=== PATIENT | female | born 1940 | race Caucasian/White ===

== ENCOUNTER 2016-11-30 14:39 | Inpatient (IN) | payer OTHER, MEDICARE ==
[~2016-11-30] VITALS: Ht 165.1 cm; Wt 84.6 kg
[~2016-11-30 14:39] MED LIST: ALENDRONATE SOD70 MG PO; ALLERGY MEDICIN25 M3 PO; AMOXICILLIN500 MG PO; ASPIR 8181 M1 PO; CALCITRIOL0.25 MCG PO; CELEXA20 MG PO; CLARITIN10 M3 PO; CLONIDINE HCL0.1 MG PO; COLACE100 MG PO; DAILY VITAMIN1 EAC4 PO; DAILY VITAMIN1 EAC8 PO; DOCUSATE SODIU100 MG PO; ECOTRIN325 MG PO; FOSAMAX70 MG PO; GABAPENTIN100 MG PO; GLUCOPHAGE500 MG PO; LIPITOR40 MG PO; LOPRESSOR25 MG PO; LORAZEPAM0.5 MG PO; LOSARTAN POTAS100 MG PO; LOVASTATIN40 MG PO; MEVACOR40 MG PO; PHENERGAN-CODE120 ML PO; PLAVIX75 MG PO; STOOL SOFTENER1 EAC2 PO; SYNTHROID137 MCG PO; SYNTHROID50 MCG PO; XANAX0.25 MG PO
[2016-11-30 15:40] LABS: EOSINOPHIL (%) 0 % (0-5); HEMATOCRIT 32.7 % (36.0-46.0); IMMATURE GRANULOCYTE (%) 0.2 % (0.0-0.7); IMMATURE GRANULOCYTE COUNT 0.4 K/uL; LYMPHOCYTE COUNT 2.1 K/uL (1.0-2.8); MCH 28.5 PG (29.0-34.0); MCHC 32.7 G/DL (30.0-36.0); MEAN PLAT.VOLUME 11.4 uM^3 (9.5-12.4); MONOCYTE (%) 6.1 % (3-12); MONOCYTE COUNT 1.1 K/uL (0-0.8); NEUTROPHIL (%) 81.8 % (45-76); NEUTROPHIL COUNT 14.4 K/uL (1.8-6.4); PLATELET COUNT 343 K/uL (156-360); RBC DIS.WIDTH-CV 15.6 % (11.8-14.6); RBC DIS.WIDTH-SD 47.8 % (39-53); RED BLOOD COUNT 3.76 M/uL (3.80-5.20); WHITE BLOOD COUNT 17.7 K/uL (4.1-10.2)
[2016-11-30 15:49] LABS: CHLORIDE 96 mEq/L (99-109); SODIUM 138 mEq/L (136-147)
[2016-11-30 15:51] LABS: GLUCOSE 149 mg/dL (70-99)
[2016-11-30 15:52] LABS: ANION GAP 16 MEQ/L (2-14)
[2016-11-30 15:53] LABS: TOTAL BILIRUBIN 0.9 mg/dL (0.0-1.0)
[2016-11-30 15:55] LABS: ALKALINE PHOSPHATASE 120 IU/L (3-129); GFR ESTIMATE (CALCULATED) > 59 mL/min/
[2016-11-30 15:56] LABS: UREA NITROGEN (BUN) 6 mg/dL (9-23)
[2016-11-30 15:58] LABS: LIPASE 75 U/L (1.0-51.0)
[2016-11-30 16:02] LABS: TROP-I INTERPRETATION NEGATIVE; TROPONIN-I 0.09 ng/mL (0.0-0.30)
[2016-11-30] MEDS ORDERED: PROTONIX40 MG PO (17:50)
[2016-11-30] MEDS ORDERED: CALCITRIOL0.25 MCG PO (17:51)
[2016-11-30] MEDS ORDERED: CELEXA20 MG PO (17:51)
[2016-11-30] MEDS ORDERED: LORAZEPAM0.5 MG PO (17:52)
[2016-11-30] MEDS ORDERED: CLARITIN,ALAVAR10 MG PO (17:52)
[2016-11-30] MEDS ORDERED: ZOFRAN4 MG PO (17:53)
[2016-11-30] MEDS ORDERED: AMLODIPINE BESYL5 MG PO (17:54)
[2016-11-30] MEDS ORDERED: CLONIDINE HCL0.1 MG PO (17:54)
[2016-11-30 17:55] LABS: ADD MIUA? YES; BILIRUBIN NEGATIVE; BLOOD SMALL; COLOR YELLOW ((YELLOW)); GLUCOSE (STRIP) 100; KETONES 15; LEUKOCYTES NEGATIVE; NITRITE NEGATIVE; PROTEIN (STRIP) 100; SPECIFIC GRAVITY 1.012 (1.000-1.030); UROBILINOGEN 0.2 MG/DL (0.2-1.0)
[2016-11-30] MEDS ORDERED: NEPHRO-VITE,1 TABLET PO (17:56)
[2016-11-30] MEDS ORDERED: K-DUR10 MEQ PO (17:57)
[2016-11-30] MEDS ORDERED: ATORVASTATIN CA80 MG PO (17:58)
[2016-11-30] MEDS ORDERED: ARANESP100 MCG/0. SC (17:58)
[2016-11-30] MEDS ORDERED: TYLENOL REGULA325 MG PO (17:59)
[2016-11-30] MEDS ORDERED: TYLENOL WITH C1 EACH PO (17:59)
[2016-11-30] MEDS ORDERED: PHENERGAN25 MG PR (18:00)
[2016-11-30] MEDS ORDERED: PROMETHAZINE HC25 M1 PO (18:00)
[2016-11-30] MEDS ORDERED: DULCOLAX10 MG PR (18:01)
[2016-11-30 18:08] LABS: BACTERIA NONE SEEN; CASTS NONE SEEN /LPF; CRYSTALS NONE SEEN; EPITHELIAL CELLS RARE; MUCUS NONE SEEN; PATHOLOGICAL CAST NONE SEEN; RED BLOOD CELLS 0-5 /HPF (0-5); SMALL ROUND CELL NONE SEEN; UCUL ADDED? NO; WHITE BLOOD CELLS 0-5 /HPF (0-5); YEAST-LIKE CELL NONE SEEN
[2016-11-30 21:46] VITALS: BP 170/72
[2016-11-30 22:00] VITALS: BP 170/72
[2016-11-30 23:55] VITALS: BP 144/65
[2016-12-01 00:32] LABS: METH RESISTANT S AUREUS PCR NEGATIVE (NEGATIVE)
[2016-12-01 00:38] LABS: PROBE CHECK PASS; SPECIMEN PROCESSING CONTROL PASS
[2016-12-01 04:00] VITALS: BP 135/60
[2016-12-01 05:46] LABS: ANION GAP 12 MEQ/L (2-14); CHLORIDE 106 MEQ/L (99-109); GFR ESTIMATE (CALCULATED) 46 mL/min/; POTASSIUM 2.8 MEQ/L (3.7-5.4); SAMPLE HEMOLYSIS CHECK 0; SAMPLE ICTERIC CHECK 0; SAMPLE LIPEMIA CHECK 0; SODIUM 142 MEQ/L (136-147); UREA NITROGEN (BUN) 10 mg/dL (9-23)
[2016-12-01 06:04] LABS: GLUCOSE 104 mg/dL (70-99)
[2016-12-01 06:11] LABS: HEMATOCRIT 26.2 % (36.0-46.0); MCH 28.6 PG (29.0-34.0); MCHC 32.1 G/DL (30.0-36.0); MCV 89.1 FL (83-99); RBC DIS.WIDTH-CV 16.1 % (11.8-14.6); WHITE BLOOD COUNT 16.6 K/uL (4.1-10.2)
[2016-12-01 06:12] LABS: RED BLOOD COUNT 2.94 M/uL (3.80-5.20)
[2016-12-01 07:00] LABS: PLATELET COUNT 238 K/uL (156-360)
[2016-12-01 07:45] VITALS: BP 150/68
[2016-12-01 11:57] VITALS: BP 130/58
[2016-12-01 16:40] VITALS: BP 137/60
[2016-12-01 19:41] VITALS: BP 122/58
[2016-12-02] VITALS (13 sets, daily range): BP systolic 107–134; BP diastolic 51–62
[2016-12-02 06:52] LABS: BASOPHIL COUNT 0.1 K/uL (0-0.1); EOSINOPHIL (%) 3.3 % (0-5); EOSINOPHIL COUNT 0.2 K/uL (0-0.3); HEMATOCRIT 23.9 % (36.0-46.0); IMMATURE GRANULOCYTE (%) 0.2 % (0.0-0.7); LYMPHOCYTE COUNT 1.9 K/uL (1.0-2.8); MCH 28.2 PG (29.0-34.0); MCHC 30.5 G/DL (30.0-36.0); MCV 92.3 FL (83-99); MONOCYTE (%) 6.3 % (3-12); MONOCYTE COUNT 0.4 K/uL (0-0.8); NEUTROPHIL (%) 57.1 % (45-76); NEUTROPHIL COUNT 3.4 K/uL (1.8-6.4); RBC DIS.WIDTH-CV 16.5 % (11.8-14.6); RBC DIS.WIDTH-SD 54.8 % (39-53); RED BLOOD COUNT 2.59 M/uL (3.80-5.20)
[2016-12-02 07:41] LABS: CHLORIDE 111 MEQ/L (99-109); GLUCOSE 76 mg/dL (70-99); IRON 80 MCG/DL (35-150); MAGNESIUM 1.3 mg/dl (1.3-2.7); SAMPLE HEMOLYSIS CHECK 0; SAMPLE ICTERIC CHECK 0; SAMPLE LIPEMIA CHECK 0; SODIUM 142 MEQ/L (136-147); UREA NITROGEN (BUN) 16 mg/dL (9-23)
[2016-12-02 07:42] LABS: ANION GAP 10 MEQ/L (2-14)
[2016-12-02 07:43] LABS: GFR ESTIMATE (CALCULATED) 31 mL/min/
[2016-12-02 08:13] LABS: MEAN PLAT.VOLUME 10.9 uM^3 (9.5-12.4); PLAT.SUFFICIENCY ADEQUATE; PLATELET COUNT 159 K/uL (156-360); USER ID SDF
[2016-12-03 03:26] VITALS: BP 103/59
[2016-12-03 06:09] LABS: BASOPHIL COUNT 0.1 K/uL (0-0.1); EOSINOPHIL (%) 6.6 % (0-5); EOSINOPHIL COUNT 0.5 K/uL (0-0.3); HEMATOCRIT 28.9 % (36.0-46.0); IMMATURE GRANULOCYTE (%) 0.1 % (0.0-0.7); LYMPHOCYTE COUNT 1.7 K/uL (1.0-2.8); MCHC 32.2 G/DL (30.0-36.0); MEAN PLAT.VOLUME 11.5 uM^3 (9.5-12.4); MONOCYTE (%) 6.9 % (3-12); MONOCYTE COUNT 0.6 K/uL (0-0.8); NEUTROPHIL (%) 65.4 % (45-76); NEUTROPHIL COUNT 5.3 K/uL (1.8-6.4); PLATELET COUNT 150 K/uL (156-360); RBC DIS.WIDTH-CV 16.7 % (11.8-14.6); RBC DIS.WIDTH-SD 54.8 % (39-53); RED BLOOD COUNT 3.21 M/uL (3.80-5.20); WHITE BLOOD COUNT 8.1 K/uL (4.1-10.2)
[2016-12-03 06:30] LABS: CHLORIDE 114 MEQ/L (99-109); GFR ESTIMATE (CALCULATED) 27 mL/min/; GLUCOSE 70 mg/dL (70-99); SODIUM 141 MEQ/L (136-147); UREA NITROGEN (BUN) 18 mg/dL (9-23)
[2016-12-03 06:31] LABS: POTASSIUM 4.1 MEQ/L (3.7-5.4)
[2016-12-03 06:41] LABS: ANION GAP 11 MEQ/L (2-14); SAMPLE HEMOLYSIS CHECK 0; SAMPLE ICTERIC CHECK 0; SAMPLE LIPEMIA CHECK 0
[2016-12-03 06:44] LABS: MAGNESIUM 1.1 mg/dl (1.3-2.7)
[2016-12-03 08:20] VITALS: BP 121/58
[2016-12-03 09:27] LABS: VANCOMYCIN, TROUGH 20.5 MCG/ML (10-20)
[2016-12-03 12:28] VITALS: BP 121/58
[2016-12-03 16:26] VITALS: BP 123/58
[2016-12-03 20:00] VITALS: BP 120/56
[2016-12-04 00:39] VITALS: BP 125/60
[2016-12-04 05:07] VITALS: BP 128/77
[2016-12-04 06:53] LABS: HEMATOCRIT 30.1 % (36.0-46.0); MCH 28.7 PG (29.0-34.0); MCHC 31.9 G/DL (30.0-36.0); MCV 90.1 FL (83-99); MEAN PLAT.VOLUME 11.5 uM^3 (9.5-12.4); PLATELET COUNT 138 K/uL (156-360); RBC DIS.WIDTH-CV 16.7 % (11.8-14.6); RBC DIS.WIDTH-SD 54.8 % (39-53); RED BLOOD COUNT 3.34 M/uL (3.80-5.20); WHITE BLOOD COUNT 6.9 K/uL (4.1-10.2)
[2016-12-04 07:14] LABS: BASOPHIL COUNT 0.1 K/uL (0-0.1); EOSINOPHIL (%) 7.6 % (0-5); EOSINOPHIL COUNT 0.5 K/uL (0-0.3); IMMATURE GRANULOCYTE (%) 0.1 % (0.0-0.7); LYMPHOCYTE COUNT 1.8 K/uL (1.0-2.8); MONOCYTE (%) 6.7 % (3-12); MONOCYTE COUNT 0.5 K/uL (0-0.8); NEUTROPHIL (%) 59.4 % (45-76); NEUTROPHIL COUNT 4.1 K/uL (1.8-6.4)
[2016-12-04 07:20] LABS: ANION GAP 9 MEQ/L (2-14); CHLORIDE 112 MEQ/L (99-109); GFR ESTIMATE (CALCULATED) 29 mL/min/; GLUCOSE 73 mg/dL (70-99); POTASSIUM 4.1 MEQ/L (3.7-5.4); SAMPLE HEMOLYSIS CHECK 0; SAMPLE ICTERIC CHECK 0; SAMPLE LIPEMIA CHECK 0; SODIUM 139 MEQ/L (136-147); UREA NITROGEN (BUN) 18 mg/dL (9-23)
[2016-12-04 07:22] LABS: VANCOMYCIN, TROUGH 17.5 MCG/ML (10-20)
[2016-12-04 07:54] VITALS: BP 115/55
[2016-12-04 09:01] LABS: INTACT PARATHYROID HORMONE 45 pg/mL (10-69)
[2016-12-04 15:45] VITALS: BP 110/56
[2016-12-04 20:48] VITALS: BP 128/58
[2016-12-04 23:50] VITALS: BP 138/63
[2016-12-05 06:26] LABS: ANION GAP 9 MEQ/L (2-14); CHLORIDE 111 MEQ/L (99-109); GFR ESTIMATE (CALCULATED) 29 mL/min/; GLUCOSE 72 mg/dL (70-99); SAMPLE HEMOLYSIS CHECK 0; SAMPLE ICTERIC CHECK 0; SAMPLE LIPEMIA CHECK 0; SODIUM 137 MEQ/L (136-147); UREA NITROGEN (BUN) 18 mg/dL (9-23)
[2016-12-05 06:49] LABS: VANCOMYCIN, TROUGH 14.5 MCG/ML (10-20)
[2016-12-05 15:18] LABS: UR CREATININE CONCENTRATION 54.9 MG/DL
[2016-12-05 16:00] VITALS: BP 150/67
[2016-12-06 00:52] VITALS: BP 140/65
[2016-12-06 06:22] LABS: ANION GAP 10 MEQ/L (2-14); CHLORIDE 111 MEQ/L (99-109); GFR ESTIMATE (CALCULATED) 29 mL/min/; GLUCOSE 67 mg/dL (70-99); POTASSIUM 3.8 MEQ/L (3.7-5.4); SAMPLE HEMOLYSIS CHECK 0; SAMPLE ICTERIC CHECK 0; SAMPLE LIPEMIA CHECK 0; SODIUM 139 MEQ/L (136-147); UREA NITROGEN (BUN) 15 mg/dL (9-23)
[2016-12-06 07:34] VITALS: BP 140/65
[2016-12-06 15:27] VITALS: BP 173/73
[2016-12-06 23:25] VITALS: BP 162/67
[2016-12-07 05:26] LABS: MCH 29.1 PG (29.0-34.0); MCHC 32.5 G/DL (30.0-36.0); MCV 89.5 FL (83-99); MEAN PLAT.VOLUME 12.2 uM^3 (9.5-12.4); PLATELET COUNT 159 K/uL (156-360); RBC DIS.WIDTH-CV 16.6 % (11.8-14.6); RBC DIS.WIDTH-SD 53.8 % (39-53); RED BLOOD COUNT 3.13 M/uL (3.80-5.20); WHITE BLOOD COUNT 6.6 K/uL (4.1-10.2)
[2016-12-07 05:29] LABS: EOSINOPHIL (%) 8.9 % (0-5); EOSINOPHIL COUNT 0.6 K/uL (0-0.3); IMMATURE GRANULOCYTE (%) 0.3 % (0.0-0.7); LYMPHOCYTE COUNT 1.8 K/uL (1.0-2.8); MONOCYTE COUNT 0.6 K/uL (0-0.8); NEUTROPHIL (%) 53.8 % (45-76); NEUTROPHIL COUNT 3.6 K/uL (1.8-6.4)
[2016-12-07 05:53] LABS: ANION GAP 9 MEQ/L (2-14); CHLORIDE 112 MEQ/L (99-109); GFR ESTIMATE (CALCULATED) 29 mL/min/; GLUCOSE 69 mg/dL (70-99); POTASSIUM 3.9 MEQ/L (3.7-5.4); SAMPLE HEMOLYSIS CHECK 0; SAMPLE ICTERIC CHECK 0; SAMPLE LIPEMIA CHECK 0; SODIUM 141 MEQ/L (136-147); UREA NITROGEN (BUN) 15 mg/dL (9-23)
[2016-12-07 05:55] LABS: VANCOMYCIN, TROUGH 28.3 MCG/ML (10-20)
[2016-12-07 07:22] VITALS: BP 152/68
[2016-12-07] MEDS ORDERED: OYSTER SHELL 51 EACH PO (12:55)
[2016-12-07] MEDS ORDERED: PROMETHAZINE HC25 M1 PO (12:57)
[2016-12-07] MEDS ORDERED: CELEXA20 MG PO (12:57)
[2016-12-07] MEDS ORDERED: SYNTHROID50 MCG PO (12:57)
[2016-12-07] MEDS ORDERED: ZOFRAN4 MG PO (12:57)
[2016-12-07] MEDS ORDERED: PROTONIX40 MG PO (12:57)
[2016-12-07] MEDS ORDERED: LOPRESSOR25 MG PO (12:57)
[2016-12-07] MEDS ORDERED: CLONIDINE HCL0.1 MG PO (12:57)
[2016-12-07] MEDS ORDERED: AMLODIPINE BESYL5 MG PO (12:57)
[2016-12-07] MEDS ORDERED: CALCITRIOL0.25 MCG PO (12:57)
[2016-12-07] MEDS ORDERED: LORAZEPAM0.5 MG PO (12:57)
[2016-12-07] MEDS ORDERED: ATORVASTATIN CA80 MG PO (12:57)
== END 2016-12-07 15:48 | disposition home or self-care (01) | DRG 871 ==
LOC: EME 14:39 → EDOF 16:55 → 4EAST 16:55 → 3EAST 16:55 → EDOF 16:55 → 4EAST 21:25 → 3EAST 12-02 22:52
PROVIDERS: Emergency Medicine; Family Medicine; Internal Medicine Nephrology
DX: A41.1 Sepsis due to other specified staphylococcus (principal); N18.6 End stage renal disease; I12.0 Hypertensive chronic kidney disease with stage 5 chronic kidney disease or end stage renal disease; E87.2 Acidosis; L97.529 Non-pressure chronic ulcer of other part of left foot with unspecified severity; L97.519 Non-pressure chronic ulcer of other part of right foot with unspecified severity; I70.1 Atherosclerosis of renal artery; D64.9 Anemia, unspecified; I25.10 Atherosclerotic heart disease of native coronary artery without angina pectoris; E11.9 Type 2 diabetes mellitus without complications; E87.6 Hypokalemia; E03.9 Hypothyroidism, unspecified; E78.5 Hyperlipidemia, unspecified; Z95.2 Presence of prosthetic heart valve; R53.1 Weakness; Z90.49 Acquired absence of other specified parts of digestive tract
CPT/HCPCS: 70450; 71010; 74176; 80048; 80053; 80069; 80202; 81003; 81050; 82306; 82575; 83540; 83605; 83690; 83735; 83970; 84466; 84484; 85025; 85027; 86850; 86900; 86901; 86920; 87040; 87077; 87081; 87186; 87641; 87801; 93005; 94799; 97530 GO; 97530 GP; 99281; 99285; J1644; J2405; J2543; J3370; J3480; J7030; J7050; P9016; P9040

== ENCOUNTER 2016-12-11 15:07 | Inpatient (IN) | payer OTHER, MEDICARE ==
[~2016-12-11] VITALS: Ht 165.1 cm; Wt 78.5 kg
[~2016-12-11 15:07] MED LIST changes: +AMLODIPINE BESYL5 MG PO; +ARANESP100 MCG/0. SC; +ATORVASTATIN CA80 MG PO; +CLARITIN,ALAVAR10 MG PO; +DULCOLAX10 MG PR; +K-DUR10 MEQ PO; +NEPHRO-VITE,1 TABLET PO; +OYSTER SHELL 51 EACH PO; +PHENERGAN25 MG PR; +PROMETHAZINE HC25 M1 PO; +PROTONIX40 MG PO; +TYLENOL REGULA325 MG PO; +TYLENOL WITH C1 EACH PO; +ZOFRAN4 MG PO
[2016-12-11 16:17] LABS: ADD MIUA? YES; BILIRUBIN NEGATIVE; BLOOD MODERATE; COLOR YELLOW ((YELLOW)); GLUCOSE (STRIP) NEGATIVE; KETONES NEGATIVE; LEUKOCYTES TRACE; NITRITE NEGATIVE; PROTEIN (STRIP) 30; SPECIFIC GRAVITY 1.012 (1.000-1.030); UROBILINOGEN 0.2 MG/DL (0.2-1.0)
[2016-12-11 16:26] LABS: BACTERIA NONE SEEN /HPF; CASTS NONE SEEN /LPF; CRYSTALS NONE SEEN; EPITHELIAL CELLS RARE /HPF; MUCUS NONE SEEN /LPF; PATHOLOGICAL CAST NONE SEEN; RED BLOOD CELLS 0-5 /HPF (0-5); SMALL ROUND CELL NONE SEEN; UCUL ADDED? NO; WHITE BLOOD CELLS 0-5 /HPF (0-5); YEAST-LIKE CELL NONE SEEN
[2016-12-11 16:26] LABS: HEMATOCRIT 30.4 % (36.0-46.0); MCH 28.7 PG (29.0-34.0); MCHC 32.6 G/DL (30.0-36.0); MCV 88.1 FL (83-99); MEAN PLAT.VOLUME 10.7 uM^3 (9.5-12.4); PLATELET COUNT 193 K/uL (156-360); RBC DIS.WIDTH-CV 16.1 % (11.8-14.6); RED BLOOD COUNT 3.45 M/uL (3.80-5.20); WHITE BLOOD COUNT 8.5 K/uL (4.1-10.2)
[2016-12-11 16:33] LABS: BASOPHIL COUNT 0.1 K/uL (0-0.1); EOSINOPHIL (%) 1.1 % (0-5); EOSINOPHIL COUNT 0.1 K/uL (0-0.3); IMMATURE GRANULOCYTE (%) 0.1 % (0.0-0.7); IMMATURE GRANULOCYTE COUNT 0.1 K/uL; LYMPHOCYTE COUNT 2.4 K/uL (1.0-2.8); MONOCYTE (%) 8.3 % (3-12); MONOCYTE COUNT 0.7 K/uL (0-0.8); NEUTROPHIL (%) 61.8 % (45-76); NEUTROPHIL COUNT 5.2 K/uL (1.8-6.4)
[2016-12-11 16:39] LABS: CHLORIDE 112 mEq/L (99-109); SODIUM 144 mEq/L (136-147)
[2016-12-11 16:41] LABS: GLUCOSE 90 mg/dL (70-99)
[2016-12-11 16:43] LABS: ANION GAP 10 MEQ/L (2-14)
[2016-12-11 16:44] LABS: POTASSIUM 2.9 mEq/L (3.7-5.4)
[2016-12-11 16:45] LABS: GFR ESTIMATE (CALCULATED) 33 mL/min/
[2016-12-11 16:46] LABS: UREA NITROGEN (BUN) 17 mg/dL (9-23)
[2016-12-11 22:00] VITALS: BP 203/83
[2016-12-12] VITALS (7 sets, daily range): BP systolic 136–194; BP diastolic 62–77
[2016-12-12 00:53] LABS: CHLORIDE 113 mEq/L (99-109); POTASSIUM 3.2 mEq/L (3.7-5.4); SODIUM 141 mEq/L (136-147)
[2016-12-12 00:54] LABS: GLUCOSE 74 mg/dL (70-99)
[2016-12-12 00:56] LABS: ANION GAP 8 MEQ/L (2-14)
[2016-12-12 00:58] LABS: GFR ESTIMATE (CALCULATED) 33 mL/min/
[2016-12-12 00:59] LABS: UREA NITROGEN (BUN) 15 mg/dL (9-23)
[2016-12-12 06:19] LABS: MCHC 32.6 G/DL (30.0-36.0); MCV 89.1 FL (83-99); MEAN PLAT.VOLUME 11.3 uM^3 (9.5-12.4); PLATELET COUNT 160 K/uL (156-360); RBC DIS.WIDTH-CV 16.8 % (11.8-14.6); RBC DIS.WIDTH-SD 54.6 % (39-53); RED BLOOD COUNT 3.03 M/uL (3.80-5.20); WHITE BLOOD COUNT 6.2 K/uL (4.1-10.2)
[2016-12-12 08:05] LABS: ALKALINE PHOSPHATASE 82 IU/L (3-129); ANION GAP 12 MEQ/L (2-14); CHLORIDE 111 MEQ/L (99-109); GFR ESTIMATE (CALCULATED) 33 mL/min/; GLUCOSE 67 mg/dL (70-99); POTASSIUM 2.9 MEQ/L (3.7-5.4); SAMPLE HEMOLYSIS CHECK 0; SAMPLE ICTERIC CHECK 0; SAMPLE LIPEMIA CHECK 0; SODIUM 144 MEQ/L (136-147); TOTAL BILIRUBIN 0.7 MG/DL (0.0-1.0); UREA NITROGEN (BUN) 15 mg/dL (9-23)
[2016-12-12 12:21] LABS: TROP-I INTERPRETATION NEGATIVE; TROPONIN-I 0.01 ng/mL (0.0-0.30)
[2016-12-12 13:28] LABS: MAGNESIUM 1.2 mg/dl (1.3-2.7)
[2016-12-12 18:42] LABS: TROP-I INTERPRETATION NEGATIVE; TROPONIN-I 0.02 ng/mL (0.0-0.30)
[2016-12-13 00:02] VITALS: BP 176/76
[2016-12-13 01:00] LABS: TROP-I INTERPRETATION NEGATIVE; TROPONIN-I < 0.01 ng/mL (0.0-0.30)
[2016-12-13 03:37] VITALS: BP 150/67
[2016-12-13 07:36] LABS: ANION GAP 8 MEQ/L (2-14); CHLORIDE 114 MEQ/L (99-109); GFR ESTIMATE (CALCULATED) 36 mL/min/; POTASSIUM 3.3 MEQ/L (3.7-5.4); SAMPLE HEMOLYSIS CHECK 0; SAMPLE ICTERIC CHECK 0; SAMPLE LIPEMIA CHECK 0; SODIUM 140 MEQ/L (136-147); UREA NITROGEN (BUN) 14 mg/dL (9-23)
[2016-12-13 07:37] LABS: GLUCOSE 87 mg/dL (70-99)
[2016-12-13 07:52] VITALS: BP 169/69
[2016-12-13 11:47] VITALS: BP 138/51
[2016-12-13] MEDS ORDERED: PANTOPRAZOLE SO40 MG PO (15:40)
[2016-12-13] MEDS ORDERED: AMLODIPINE BESY10 MG PO (15:40)
[2016-12-13 15:52] VITALS: BP 141/66
== END 2016-12-13 18:20 | disposition home health service (06) | DRG 641 ==
LOC: EME → EDBD 15:07 → 5WEST 20:09 → EDOF 20:09 → 5WEST 21:11 → 5SOUTH 12-12 11:43
PROVIDERS: Emergency Medicine; Internal Medicine; Internal Medicine Nephrology; Physician Assistant
DX: E87.6 Hypokalemia (principal); F33.9 Major depressive disorder, recurrent, unspecified; R64 Cachexia; J98.11 Atelectasis; J90 Pleural effusion, not elsewhere classified; N18.3 Chronic kidney disease, stage 3 (moderate); Z99.2 Dependence on renal dialysis; I12.9 Hypertensive chronic kidney disease with stage 1 through stage 4 chronic kidney disease, or unspecified chronic kidney disease; I25.10 Atherosclerotic heart disease of native coronary artery without angina pectoris; E78.5 Hyperlipidemia, unspecified; F41.9 Anxiety disorder, unspecified; K44.9 Diaphragmatic hernia without obstruction or gangrene; E78.00 Pure hypercholesterolemia, unspecified; E03.9 Hypothyroidism, unspecified; J44.9 Chronic obstructive pulmonary disease, unspecified; K21.9 Gastro-esophageal reflux disease without esophagitis; D64.9 Anemia, unspecified; I87.2 Venous insufficiency (chronic) (peripheral); E66.9 Obesity, unspecified; L89.150 Pressure ulcer of sacral region, unstageable; K29.70 Gastritis, unspecified, without bleeding; I70.0 Atherosclerosis of aorta; I70.1 Atherosclerosis of renal artery; R13.10 Dysphagia, unspecified; I73.9 Peripheral vascular disease, unspecified; Z79.02 Long term (current) use of antithrombotics/antiplatelets; Z95.5 Presence of coronary angioplasty implant and graft; Z68.29 Body mass index [BMI] 29.0-29.9, adult; Z80.1 Family history of malignant neoplasm of trachea, bronchus and lung; Z80.8 Family history of malignant neoplasm of other organs or systems
CPT/HCPCS: 70450; 71010; 74020; 80048; 80048 91; 80053; 81003; 83630; 83735; 84132 91; 84484; 85025; 85027; 87177; 87493; 88305; 88342 TC; 92610 GN; 93005; 94799; 99281; 99285; B4087; C9113; G0378; G8996 GN CH; G8997 GN CH; G8998 GN CH; J1644; J2405; J3480; J7030; J7040

== ENCOUNTER 2016-12-18 10:50 | Inpatient (IN) | payer OTHER, MEDICARE ==
[~2016-12-18] VITALS: Ht 165.1 cm; Wt 73.9 kg
[~2016-12-18 10:50] MED LIST changes: +AMLODIPINE BESY10 MG PO; +PANTOPRAZOLE SO40 MG PO
[2016-12-18 11:37] LABS: BASOPHIL COUNT 0.1 K/uL (0-0.1); EOSINOPHIL (%) 0.9 % (0-5); EOSINOPHIL COUNT 0.1 K/uL (0-0.3); IMMATURE GRANULOCYTE (%) 0.2 % (0.0-0.7); IMMATURE GRANULOCYTE COUNT 0.2 K/uL; LYMPHOCYTE COUNT 2.4 K/uL (1.0-2.8); MCH 28.9 PG (29.0-34.0); MCHC 33.6 G/DL (30.0-36.0); MCV 85.9 FL (83-99); MEAN PLAT.VOLUME 11.1 uM^3 (9.5-12.4); MONOCYTE (%) 9.5 % (3-12); MONOCYTE COUNT 1.1 K/uL (0-0.8); NEUTROPHIL (%) 68.5 % (45-76); PLATELET COUNT 265 K/uL (156-360); RBC DIS.WIDTH-CV 15.9 % (11.8-14.6); RBC DIS.WIDTH-SD 48.8 % (39-53); RED BLOOD COUNT 3.84 M/uL (3.80-5.20); WHITE BLOOD COUNT 11.6 K/uL (4.1-10.2)
[2016-12-18 11:42] LABS: CHLORIDE 102 mEq/L (99-109); POTASSIUM 2.6 mEq/L (3.7-5.4); SODIUM 139 mEq/L (136-147)
[2016-12-18 11:46] LABS: ANION GAP 15 MEQ/L (2-14); GLUCOSE 136 mg/dL (70-99); TOTAL BILIRUBIN 0.7 mg/dL (0.0-1.0)
[2016-12-18 11:48] LABS: ALKALINE PHOSPHATASE 110 IU/L (3-129); GFR ESTIMATE (CALCULATED) 33 mL/min/
[2016-12-18 11:49] LABS: UREA NITROGEN (BUN) 8 mg/dL (9-23)
[2016-12-18 11:51] LABS: LIPASE 30 U/L (1.0-51.0)
[2016-12-18 14:42] VITALS: BP 167/75
[2016-12-18 18:35] LABS: Estimated Average Glucose 114 mg/dL (70-123); HEMOGLOBIN A1c (GLYCOHEMOGLOB) 5.6 % HGB (Below 5.7)
[2016-12-18 18:49] VITALS: BP 190/84
[2016-12-18 21:00] VITALS: BP 195/84
[2016-12-19] VITALS (9 sets, daily range): BP systolic 131–188; BP diastolic 62–94
[2016-12-19 05:34] LABS: ADD MIUA? YES; BILIRUBIN NEGATIVE; BLOOD SMALL; COLOR YELLOW ((YELLOW)); GLUCOSE (STRIP) NEGATIVE; KETONES NEGATIVE; LEUKOCYTES SMALL; NITRITE POSITIVE; PROTEIN (STRIP) NEGATIVE; SPECIFIC GRAVITY 1.005 (1.000-1.030); UROBILINOGEN 0.2 MG/DL (0.2-1.0)
[2016-12-19 05:36] LABS: BACTERIA 3+ /HPF; EPITHELIAL CELLS RARE /HPF; MUCUS NONE SEEN /LPF; UCUL ADDED? YES
[2016-12-19 06:29] LABS: HEMATOCRIT 29.1 % (36.0-46.0); MCH 29.3 PG (29.0-34.0); MCHC 33.7 G/DL (30.0-36.0); MCV 86.9 FL (83-99); MEAN PLAT.VOLUME 11.2 uM^3 (9.5-12.4); PLATELET COUNT 244 K/uL (156-360); RBC DIS.WIDTH-CV 16.6 % (11.8-14.6); RBC DIS.WIDTH-SD 51.9 % (39-53); RED BLOOD COUNT 3.35 M/uL (3.80-5.20); WHITE BLOOD COUNT 9.4 K/uL (4.1-10.2)
[2016-12-19 06:43] LABS: INTER. NORMALIZED RATIO 1.3
[2016-12-19 06:57] LABS: ANION GAP 14 MEQ/L (2-14); CHLORIDE 100 MEQ/L (99-109); GFR ESTIMATE (CALCULATED) 39 mL/min/; HDL CHOLESTEROL 28 MG/DL (Desirable>=50); LDL CHOLESTEROL 43 mg/dL (Desirable<100); NON-HDL CHOLESTEROL 66 mg/dL (Desirable<160); POTASSIUM 2.8 MEQ/L (3.7-5.4); SAMPLE HEMOLYSIS CHECK 0; SAMPLE ICTERIC CHECK 0; SAMPLE LIPEMIA CHECK 0; SODIUM 137 MEQ/L (136-147); TOTAL CHOLESTEROL 94 mg/dL (Desirable<200); TRIGLYCERIDES 117 MG/DL (Normal: <150); UREA NITROGEN (BUN) 7 mg/dL (9-23)
[2016-12-19 06:59] LABS: GLUCOSE 98 mg/dL (70-99); MAGNESIUM 1.5 mg/dl (1.3-2.7)
[2016-12-19 22:59] LABS: INFLUENZA A VIRAL ANTIGEN NEGATIVE; INFLUENZA B VIRAL ANTIGEN NEGATIVE
[2016-12-20 04:14] VITALS: BP 145/64
[2016-12-20 07:15] VITALS: BP 179/75
[2016-12-20 07:19] LABS: BASOPHIL COUNT 0.1 K/uL (0-0.1); EOSINOPHIL (%) 9.9 % (0-5); EOSINOPHIL COUNT 0.6 K/uL (0-0.3); HEMATOCRIT 24.8 % (36.0-46.0); IMMATURE GRANULOCYTE (%) 0.2 % (0.0-0.7); LYMPHOCYTE COUNT 1.4 K/uL (1.0-2.8); MCH 28.9 PG (29.0-34.0); MCHC 32.7 G/DL (30.0-36.0); MCV 88.6 FL (83-99); MONOCYTE (%) 9.9 % (3-12); MONOCYTE COUNT 0.6 K/uL (0-0.8); NEUTROPHIL (%) 56.1 % (45-76); NEUTROPHIL COUNT 3.3 K/uL (1.8-6.4); PLATELET COUNT 201 K/uL (156-360); RBC DIS.WIDTH-CV 17.1 % (11.8-14.6); RBC DIS.WIDTH-SD 55.5 % (39-53)
[2016-12-20 07:20] LABS: WHITE BLOOD COUNT 5.9 K/uL (4.1-10.2)
[2016-12-20 07:36] LABS: ANION GAP 11 MEQ/L (2-14); CHLORIDE 104 MEQ/L (99-109); GFR ESTIMATE (CALCULATED) 42 mL/min/; GLUCOSE 74 mg/dL (70-99); POTASSIUM 3.1 MEQ/L (3.7-5.4); SAMPLE HEMOLYSIS CHECK 0; SAMPLE ICTERIC CHECK 0; SAMPLE LIPEMIA CHECK 0; SODIUM 137 MEQ/L (136-147); UREA NITROGEN (BUN) 10 mg/dL (9-23)
[2016-12-20 07:37] LABS: VANCOMYCIN, TROUGH 15.9 MCG/ML (10-20)
[2016-12-20 14:30] VITALS: BP 114/58
[2016-12-20 16:15] VITALS: BP 118/71
[2016-12-20 20:00] VITALS: BP 160/72
[2016-12-21 00:21] VITALS: BP 138/65
[2016-12-21 04:00] VITALS: BP 138/63
[2016-12-21 07:37] LABS: HEMATOCRIT 25.8 % (36.0-46.0); MCH 29.1 PG (29.0-34.0); MCHC 32.9 G/DL (30.0-36.0); MCV 88.4 FL (83-99); MEAN PLAT.VOLUME 10.7 uM^3 (9.5-12.4); PLATELET COUNT 205 K/uL (156-360); RBC DIS.WIDTH-CV 16.9 % (11.8-14.6); RBC DIS.WIDTH-SD 54.1 % (39-53); RED BLOOD COUNT 2.92 M/uL (3.80-5.20)
[2016-12-21 07:53] LABS: EOSINOPHIL (%) 9.2 % (0-5); EOSINOPHIL COUNT 0.6 K/uL (0-0.3); IMMATURE GRANULOCYTE (%) 0.2 % (0.0-0.7); LYMPHOCYTE COUNT 1.3 K/uL (1.0-2.8); MONOCYTE (%) 9.2 % (3-12); MONOCYTE COUNT 0.6 K/uL (0-0.8); NEUTROPHIL (%) 59.4 % (45-76); NEUTROPHIL COUNT 3.6 K/uL (1.8-6.4)
[2016-12-21 07:59] LABS: ANION GAP 8 MEQ/L (2-14); CHLORIDE 106 MEQ/L (99-109); GFR ESTIMATE (CALCULATED) 42 mL/min/; GLUCOSE 85 mg/dL (70-99); MAGNESIUM 1.7 mg/dl (1.3-2.7); POTASSIUM 3.6 MEQ/L (3.7-5.4); SAMPLE HEMOLYSIS CHECK 0; SAMPLE ICTERIC CHECK 0; SAMPLE LIPEMIA CHECK 0; SODIUM 136 MEQ/L (136-147); UREA NITROGEN (BUN) 11 mg/dL (9-23)
[2016-12-21 08:15] VITALS: BP 140/75
[2016-12-21 15:24] VITALS: BP 117/79
[2016-12-21 20:17] VITALS: BP 144/67
[2016-12-22] VITALS (7 sets, daily range): BP systolic 106–123; BP diastolic 50–60
[2016-12-22 09:44] LABS: HEMATOCRIT 27.2 % (36.0-46.0); MCV 90.7 FL (83-99); MEAN PLAT.VOLUME 11.3 uM^3 (9.5-12.4); PLATELET COUNT 259 K/uL (156-360); RBC DIS.WIDTH-SD 56.3 % (39-53)
[2016-12-22 10:14] LABS: ANION GAP 8 MEQ/L (2-14); CHLORIDE 103 MEQ/L (99-109); GFR ESTIMATE (CALCULATED) 39 mL/min/; POTASSIUM 3.9 MEQ/L (3.7-5.4); SAMPLE HEMOLYSIS CHECK 0; SAMPLE ICTERIC CHECK 0; SAMPLE LIPEMIA CHECK 0; SODIUM 132 MEQ/L (136-147); UREA NITROGEN (BUN) 12 mg/dL (9-23)
[2016-12-22 10:16] LABS: GLUCOSE 133 mg/dL (70-99)
[2016-12-22 10:24] LABS: WHITE BLOOD COUNT 9.7 K/uL (4.1-10.2)
[2016-12-22 10:36] LABS: BASOPHIL COUNT 0.1 K/uL (0-0.1); EOSINOPHIL (%) 4.9 % (0-5); EOSINOPHIL COUNT 0.5 K/uL (0-0.3); HEMATOLOGY COMMENT 1 SMEAR COMPATIBLE; IMMATURE GRANULOCYTE (%) 0.1 % (0.0-0.7); MONOCYTE COUNT 1.1 K/uL (0-0.8); NEUTROPHIL (%) 62.5 % (45-76); PLAT.SUFFICIENCY ADEQUATE
[2016-12-23 03:20] VITALS: BP 117/56
[2016-12-23 08:59] VITALS: BP 107/53
[2016-12-23 10:07] LABS: HEMATOCRIT 24.4 % (36.0-46.0); MCH 29.9 PG (29.0-34.0); MCHC 33.6 G/DL (30.0-36.0); MCV 89.1 FL (83-99); MEAN PLAT.VOLUME 10.6 uM^3 (9.5-12.4); PLATELET COUNT 257 K/uL (156-360); RBC DIS.WIDTH-CV 16.7 % (11.8-14.6); RBC DIS.WIDTH-SD 54.2 % (39-53); RED BLOOD COUNT 2.74 M/uL (3.80-5.20); WHITE BLOOD COUNT 8.6 K/uL (4.1-10.2)
[2016-12-23 10:25] LABS: ANION GAP 7 MEQ/L (2-14); CHLORIDE 103 MEQ/L (99-109); POTASSIUM 3.5 MEQ/L (3.7-5.4); SAMPLE HEMOLYSIS CHECK 0; SAMPLE ICTERIC CHECK 0; SAMPLE LIPEMIA CHECK 0; SODIUM 133 MEQ/L (136-147)
[2016-12-23 10:32] LABS: GFR ESTIMATE (CALCULATED) 39 mL/min/; UREA NITROGEN (BUN) 14 mg/dL (9-23)
[2016-12-23 11:41] LABS: GLUCOSE 207 mg/dL (70-99)
[2016-12-23 12:33] VITALS: BP 113/53
[2016-12-23 15:47] VITALS: BP 144/70
[2016-12-23 19:21] VITALS: BP 138/65
[2016-12-23 23:05] VITALS: BP 121/56
[2016-12-24 02:55] VITALS: BP 142/64
[2016-12-24 07:14] LABS: HEMATOCRIT 24.2 % (36.0-46.0); MCH 29.8 PG (29.0-34.0); MCHC 33.5 G/DL (30.0-36.0); MEAN PLAT.VOLUME 10.8 uM^3 (9.5-12.4); PLATELET COUNT 243 K/uL (156-360); RBC DIS.WIDTH-CV 16.6 % (11.8-14.6); RED BLOOD COUNT 2.72 M/uL (3.80-5.20); WHITE BLOOD COUNT 10.3 K/uL (4.1-10.2)
[2016-12-24 07:31] LABS: ANION GAP 11 MEQ/L (2-14); CHLORIDE 104 MEQ/L (99-109); GFR ESTIMATE (CALCULATED) 42 mL/min/; POTASSIUM 3.9 MEQ/L (3.7-5.4); SAMPLE HEMOLYSIS CHECK 0; SAMPLE ICTERIC CHECK 0; SAMPLE LIPEMIA CHECK 0; SODIUM 134 MEQ/L (136-147); UREA NITROGEN (BUN) 12 mg/dL (9-23)
[2016-12-24 07:32] LABS: GLUCOSE 116 mg/dL (70-99); MAGNESIUM 1.4 mg/dl (1.3-2.7)
[2016-12-24 07:47] VITALS: BP 152/67
[2016-12-24 11:25] VITALS: BP 130/62
[2016-12-24 15:45] VITALS: BP 148/66
[2016-12-24 19:50] VITALS: BP 179/76
[2016-12-24 23:40] VITALS: BP 153/68
[2016-12-25 04:57] VITALS: BP 142/60
[2016-12-25 07:55] LABS: ANION GAP 9 MEQ/L (2-14); CHLORIDE 103 MEQ/L (99-109); GFR ESTIMATE (CALCULATED) 51 mL/min/; GLUCOSE 114 mg/dL (70-99); POTASSIUM 3.4 MEQ/L (3.7-5.4); SAMPLE HEMOLYSIS CHECK 0; SAMPLE ICTERIC CHECK 0; SAMPLE LIPEMIA CHECK 0; SODIUM 136 MEQ/L (136-147); UREA NITROGEN (BUN) 9 mg/dL (9-23)
[2016-12-25 08:05] VITALS: BP 164/70
[2016-12-25 08:24] LABS: EOSINOPHIL (%) 6.6 % (0-5); EOSINOPHIL COUNT 0.7 K/uL (0-0.3); HEMATOCRIT 25.6 % (36.0-46.0); IMMATURE GRANULOCYTE (%) 0.2 % (0.0-0.7); IMMATURE GRANULOCYTE COUNT 0.2 K/uL; LYMPHOCYTE COUNT 1.8 K/uL (1.0-2.8); MCH 28.5 PG (29.0-34.0); MCHC 32.4 G/DL (30.0-36.0); MONOCYTE (%) 8.7 % (3-12); MONOCYTE COUNT 0.9 K/uL (0-0.8); NEUTROPHIL (%) 65.9 % (45-76); NEUTROPHIL COUNT 6.5 K/uL (1.8-6.4); PLATELET COUNT 303 K/uL (156-360); RBC DIS.WIDTH-CV 15.8 % (11.8-14.6); RBC DIS.WIDTH-SD 49.3 % (39-53); RED BLOOD COUNT 2.91 M/uL (3.80-5.20); WHITE BLOOD COUNT 9.9 K/uL (4.1-10.2)
[2016-12-25 12:20] VITALS: BP 146/68
[2016-12-25 15:55] VITALS: BP 141/65
[2016-12-25 19:00] VITALS: BP 134/62
[2016-12-25 22:57] VITALS: BP 144/66
[2016-12-26 03:50] VITALS: BP 129/61
[2016-12-26 08:23] VITALS: BP 148/66
[2016-12-26 10:35] LABS: POINT-OF-CARE METER ID UU13113694; POINT-OF-CARE USER ID AHSUCAJR
[2016-12-26 12:27] LABS: POINT-OF-CARE METER ID UU13113819
[2016-12-26 13:23] VITALS: BP 158/71
[2016-12-26 16:58] VITALS: BP 161/72
[2016-12-26 20:52] VITALS: BP 176/75
[2016-12-27 00:01] VITALS: BP 173/77
[2016-12-27 00:10] VITALS: BP 158/54
[2016-12-27 06:53] LABS: EOSINOPHIL (%) 4.1 % (0-5); EOSINOPHIL COUNT 0.3 K/uL (0-0.3); HEMATOCRIT 24.3 % (36.0-46.0); IMMATURE GRANULOCYTE (%) 0.1 % (0.0-0.7); LYMPHOCYTE COUNT 1.8 K/uL (1.0-2.8); MCH 28.6 PG (29.0-34.0); MCHC 32.9 G/DL (30.0-36.0); MCV 86.8 FL (83-99); MONOCYTE (%) 12.6 % (3-12); MONOCYTE COUNT 0.9 K/uL (0-0.8); NEUTROPHIL (%) 56.2 % (45-76); NEUTROPHIL COUNT 3.9 K/uL (1.8-6.4); PLATELET COUNT 293 K/uL (156-360); RBC DIS.WIDTH-CV 16.1 % (11.8-14.6); RBC DIS.WIDTH-SD 51.6 % (39-53)
[2016-12-27 06:59] LABS: WHITE BLOOD COUNT 6.9 K/uL (4.1-10.2)
[2016-12-27 07:08] LABS: ANION GAP 10 MEQ/L (2-14); CHLORIDE 100 MEQ/L (99-109); GFR ESTIMATE (CALCULATED) 46 mL/min/; GLUCOSE 90 mg/dL (70-99); POTASSIUM 3.2 MEQ/L (3.7-5.4); SAMPLE HEMOLYSIS CHECK 0; SAMPLE ICTERIC CHECK 0; SAMPLE LIPEMIA CHECK 0; SODIUM 135 MEQ/L (136-147); UREA NITROGEN (BUN) 10 mg/dL (9-23)
[2016-12-27 07:10] LABS: MAGNESIUM 1.4 mg/dl (1.3-2.7)
[2016-12-27 08:11] VITALS: BP 148/50
[2016-12-27 11:34] VITALS: BP 142/42
[2016-12-27 16:29] VITALS: BP 182/78
[2016-12-27 23:41] VITALS: BP 191/79
[2016-12-28 01:00] VITALS: BP 171/94
[2016-12-28 06:48] LABS: BASOPHIL COUNT 0.1 K/uL (0-0.1); EOSINOPHIL (%) 3.2 % (0-5); EOSINOPHIL COUNT 0.3 K/uL (0-0.3); HEMATOCRIT 27.7 % (36.0-46.0); IMMATURE GRANULOCYTE (%) 0.2 % (0.0-0.7); LYMPHOCYTE COUNT 2.1 K/uL (1.0-2.8); MCH 29.1 PG (29.0-34.0); MCHC 33.6 G/DL (30.0-36.0); MCV 86.6 FL (83-99); MEAN PLAT.VOLUME 10.4 uM^3 (9.5-12.4); MONOCYTE (%) 11.8 % (3-12); NEUTROPHIL (%) 59.8 % (45-76); NEUTROPHIL COUNT 5.1 K/uL (1.8-6.4); PLATELET COUNT 331 K/uL (156-360); WHITE BLOOD COUNT 8.5 K/uL (4.1-10.2)
[2016-12-28 07:14] LABS: ANION GAP 12 MEQ/L (2-14); CHLORIDE 100 MEQ/L (99-109); MAGNESIUM 1.4 mg/dl (1.3-2.7); POTASSIUM 3.1 MEQ/L (3.7-5.4); SAMPLE HEMOLYSIS CHECK 0; SAMPLE ICTERIC CHECK 0; SAMPLE LIPEMIA CHECK 0; SODIUM 136 MEQ/L (136-147)
[2016-12-28 07:20] LABS: GFR ESTIMATE (CALCULATED) 51 mL/min/; GLUCOSE 95 mg/dL (70-99); UREA NITROGEN (BUN) 10 mg/dL (9-23)
[2016-12-28 07:49] VITALS: BP 184/79
[2016-12-28 10:58] VITALS: BP 167/72
[2016-12-28 14:45] VITALS: BP 145/65
[2016-12-28 23:19] VITALS: BP 156/78
[2016-12-28 23:58] VITALS: BP 183/78
[2016-12-29 00:56] VITALS: BP 146/67
[2016-12-29 07:04] LABS: MCH 28.7 PG (29.0-34.0); MCHC 32.8 G/DL (30.0-36.0); MCV 87.4 FL (83-99); MEAN PLAT.VOLUME 10.3 uM^3 (9.5-12.4); PLATELET COUNT 286 K/uL (156-360); RBC DIS.WIDTH-CV 16.1 % (11.8-14.6); RBC DIS.WIDTH-SD 51.8 % (39-53); RED BLOOD COUNT 2.86 M/uL (3.80-5.20); WHITE BLOOD COUNT 6.7 K/uL (4.1-10.2)
[2016-12-29 07:22] LABS: ANION GAP 8 MEQ/L (2-14); CHLORIDE 100 MEQ/L (99-109); GFR ESTIMATE (CALCULATED) 39 mL/min/; GLUCOSE 102 mg/dL (70-99); MAGNESIUM 1.4 mg/dl (1.3-2.7); POTASSIUM 3.6 MEQ/L (3.7-5.4); SAMPLE HEMOLYSIS CHECK 0; SAMPLE ICTERIC CHECK 0; SAMPLE LIPEMIA CHECK 0; SODIUM 132 MEQ/L (136-147); UREA NITROGEN (BUN) 13 mg/dL (9-23)
[2016-12-29 07:24] LABS: BASOPHIL COUNT 0.1 K/uL (0-0.1); EOSINOPHIL (%) 7.6 % (0-5); EOSINOPHIL COUNT 0.5 K/uL (0-0.3); IMMATURE GRANULOCYTE (%) 0.3 % (0.0-0.7); LYMPHOCYTE COUNT 1.9 K/uL (1.0-2.8); MONOCYTE (%) 10.8 % (3-12); MONOCYTE COUNT 0.7 K/uL (0-0.8); NEUTROPHIL (%) 51.8 % (45-76); NEUTROPHIL COUNT 3.5 K/uL (1.8-6.4)
[2016-12-29 07:58] VITALS: BP 139/65
[2016-12-29 16:00] VITALS: BP 122/58
[2016-12-29 23:43] VITALS: BP 125/86
[2016-12-30 07:42] LABS: EOSINOPHIL (%) 6.7 % (0-5); EOSINOPHIL COUNT 0.4 K/uL (0-0.3); HEMATOCRIT 25.9 % (36.0-46.0); IMMATURE GRANULOCYTE (%) 0.3 % (0.0-0.7); LYMPHOCYTE COUNT 1.6 K/uL (1.0-2.8); MCH 27.9 PG (29.0-34.0); MCHC 31.3 G/DL (30.0-36.0); MCV 89.3 FL (83-99); MEAN PLAT.VOLUME 10.2 uM^3 (9.5-12.4); MONOCYTE (%) 10.2 % (3-12); MONOCYTE COUNT 0.6 K/uL (0-0.8); NEUTROPHIL COUNT 3.5 K/uL (1.8-6.4); PLATELET COUNT 271 K/uL (156-360); RBC DIS.WIDTH-CV 15.9 % (11.8-14.6); RBC DIS.WIDTH-SD 51.5 % (39-53); WHITE BLOOD COUNT 6.2 K/uL (4.1-10.2)
[2016-12-30 08:07] VITALS: BP 125/59
[2016-12-30 08:07] LABS: ANION GAP 8 MEQ/L (2-14); CHLORIDE 101 MEQ/L (99-109); GFR ESTIMATE (CALCULATED) 39 mL/min/; GLUCOSE 118 mg/dL (70-99); POTASSIUM 4.1 MEQ/L (3.7-5.4); SAMPLE HEMOLYSIS CHECK 0; SAMPLE ICTERIC CHECK 0; SAMPLE LIPEMIA CHECK 0; SODIUM 134 MEQ/L (136-147); UREA NITROGEN (BUN) 16 mg/dL (9-23)
[2016-12-30 15:26] VITALS: BP 135/60
[2016-12-31 00:03] VITALS: BP 135/63
[2016-12-31 08:24] VITALS: BP 136/75
[2016-12-31 16:00] VITALS: BP 121/56
[2016-12-31 23:50] VITALS: BP 129/63
[2017-01-01 06:54] VITALS: BP 136/64
[2017-01-01 07:50] LABS: HEMATOCRIT 26.6 % (36.0-46.0); MCH 28.6 PG (29.0-34.0); MCHC 31.6 G/DL (30.0-36.0); MCV 90.5 FL (83-99); MEAN PLAT.VOLUME 10.9 uM^3 (9.5-12.4); PLATELET COUNT 311 K/uL (156-360); RBC DIS.WIDTH-CV 16.7 % (11.8-14.6); RBC DIS.WIDTH-SD 54.9 % (39-53); RED BLOOD COUNT 2.94 M/uL (3.80-5.20)
[2017-01-01 07:52] LABS: WHITE BLOOD COUNT 8.4 K/uL (4.1-10.2)
[2017-01-01 08:15] LABS: ANION GAP 9 MEQ/L (2-14); CHLORIDE 101 MEQ/L (99-109); GFR ESTIMATE (CALCULATED) 46 mL/min/; GLUCOSE 83 mg/dL (70-99); POTASSIUM 4.3 MEQ/L (3.7-5.4); SAMPLE HEMOLYSIS CHECK 0; SAMPLE ICTERIC CHECK 0; SAMPLE LIPEMIA CHECK 0; SODIUM 136 MEQ/L (136-147); UREA NITROGEN (BUN) 17 mg/dL (9-23)
[2017-01-01 14:55] VITALS: BP 91/53
[2017-01-01 23:38] VITALS: BP 147/68
[2017-01-02 07:10] VITALS: BP 167/72
[2017-01-02 11:30] VITALS: BP 167/72
[2017-01-02] MEDS ORDERED: CLONIDINE1 EAC1 TD (11:32)
[2017-01-02] MEDS ORDERED: LOPRESSOR50 MG PO (11:33)
== END 2017-01-02 13:56 | disposition home health service (06) | DRG 391 ==
LOC: EME → EDBD 10:50 → EME 10:50 → EDOF 13:08 → 5WEST 13:08 → 2EAST 12-20 07:34 → 5WEST 12-20 07:34 → 2EAST 12-20 19:31
PROVIDERS: Emergency Medicine; Internal Medicine; Internal Medicine Nephrology; Physician Assistant
PROC: 0WP803Z Removal of Infusion Device from Chest Wall, Open Approach (ICD-10-PCS; principal; 2016-12-19)
PROC: 0DH64UZ Insertion of Feeding Device into Stomach, Percutaneous Endoscopic Approach (ICD-10-PCS; 2016-12-26)
DX: R11.2 Nausea with vomiting, unspecified (principal); N17.9 Acute kidney failure, unspecified; G93.40 Encephalopathy, unspecified; J90 Pleural effusion, not elsewhere classified; N39.0 Urinary tract infection, site not specified; J98.11 Atelectasis; R47.01 Aphasia; E46 Unspecified protein-calorie malnutrition; K29.70 Gastritis, unspecified, without bleeding; N18.3 Chronic kidney disease, stage 3 (moderate); I12.9 Hypertensive chronic kidney disease with stage 1 through stage 4 chronic kidney disease, or unspecified chronic kidney disease; E86.0 Dehydration; E87.6 Hypokalemia; I25.10 Atherosclerotic heart disease of native coronary artery without angina pectoris; Z95.5 Presence of coronary angioplasty implant and graft; Z95.3 Presence of xenogenic heart valve; E78.5 Hyperlipidemia, unspecified; E11.22 Type 2 diabetes mellitus with diabetic chronic kidney disease; K52.9 Noninfective gastroenteritis and colitis, unspecified; K59.00 Constipation, unspecified; E11.43 Type 2 diabetes mellitus with diabetic autonomic (poly)neuropathy; B96.1 Klebsiella pneumoniae [K. pneumoniae] as the cause of diseases classified elsewhere; B96.5 Pseudomonas (aeruginosa) (mallei) (pseudomallei) as the cause of diseases classified elsewhere; D63.8 Anemia in other chronic diseases classified elsewhere; R13.10 Dysphagia, unspecified
CPT/HCPCS: 70450; 70551; 71010; 74176; 78264; 80048; 80053; 80061; 80202; 81003; 82088 90; 82436; 82948; 83036; 83690; 83735; 84100; 84133; 84244 90; 84300; 85025; 85027; 85610; 87040; 87070; 87077; 87086; 87186; 87502; 93005; 93880; 94799; 97530 GO; 97530 GP; 99202; 99281; 99284; A9541; G0378; J0295; J0360; J0692; J0696; J1644; J2250; J2405; J3010; J3370; J3475; J3480; J7030; J7050; J7120; Q0169; S0028

== ENCOUNTER → 2017-11-20 | Outpatient (CLI) | payer MEDICARE ==
[~2017-11-20] MED LIST changes: +CLONIDINE1 EAC1 TD; +LOPRESSOR50 MG PO
== END | disposition home or self-care (01) ==
LOC: CDC 10:58
DX: Z01.810 Encounter for preprocedural cardiovascular examination (principal); I45.10 Unspecified right bundle-branch block
CPT/HCPCS: 93000

== ENCOUNTER → 2018-03-26 | Outpatient (CLI) | payer MEDICARE | END | disposition home or self-care (01) | LOC: CDC 16:23 | DX: I45.10 Unspecified right bundle-branch block (principal) | CPT/HCPCS: 93000 ==